=== PATIENT | female | born 1990 | race Caucasian/White ===

== ENCOUNTER 2025-02-15 06:02 | Emergency (ER) | payer OTHER, SELFPAY ==
[2025-02-15 06:08] VITALS: BP 98/70
[2025-02-15 06:35] LABS: Hematocrit 40.7 % (37.0-47.0); Hemoglobin 13.5 g/dL (12.0-16.0); Mean Corp Hgb Conc. 33.2 g/dL (33.0-37.0); Mean Corpuscular Volume 87.9 fL (81.0-99.0); Nucleated Red Blood Cells % 0 %; Platelet Count 254 10^3/uL (130-400); Red Cell Dist. Width 11.9 % (11.5-14.5)
[2025-02-15 06:48] LABS: ALT (SGPT) 12 U/L (0-35); AST (SGOT) 18 U/L (14-36); Albumin 4.8 g/dl (3.5-5.0); Alkaline Phosphatase 61 U/L (38-126); Blood Urea Nitrogen 16 mg/dl (7-17); Calcium 9.2 mg/dl (8.4-10.2); Carbon Dioxide 26 mmol/L (22-30); Chloride 108 mmol/L (98-107); Glucose 98 mg/dl (70-99); Potassium 4.6 mmol/L (3.5-5.1); Sodium 141 mmol/L (135-145); Total Protein 7.9 g/dl (6.3-8.2); eGFR > 60.00
[2025-02-15 06:59] LABS: Troponin I < 0.012 ng/ml
[2025-02-15 07:06] LABS: HCG, Serum Qualitative Screen Negative
[2025-02-15 09:17] VITALS: BMI 19.9
[2025-02-15 09:20] VITALS: BP 112/79
--- NOTE | 2025-02-15 09:26 | ED.GENMED ---
History of Present Illness
General
Chief Complaint: Chest Problem
Time Seen by Provider: 02/15/25 09:14
History of Present Illness
History of Present Illness:
34-year-old female without significant past medical history presenting to the emergency department for intermittent left-sided chest pain. Patient reports for the past few months she has had left-sided chest pain, more prominent in the past week.
Denies known inciting component to the pain. Does note some mild shortness of breath when pain comes on, only lasts a few seconds. Denies radiation. Denies personal cardiac history, does report some family history. Denies any history of blood
clots, exogenous estrogen, recent travel or surgery. Denies abdominal pain or GI symptoms. She saw her primary care doctor who recommended that she come to the hospital. Denies additional acute medical complaints
Phy Exam
Physical Exam
Physical Exam:
General: Well-appearing, no clinical signs of dehydration, nontoxic and in no acute distress
HEENT: protecting airway
Neck: appears supple
CV: Normal heart rate, regular rhythm
Resp: No accessory muscle use, no increased work of breathing, lungs clear to auscultation bilaterally
Abd: Soft and non-distended, no tenderness to palpation
Extremities: No deformities, no swelling
Neuro: alert, no focal neurologic deficit
: deferred
Rectal: deferred
Psych: Normal affect
Skin: Intact
Scores
Heart Score for Chest Pain Patients
STEMI patient?: No
History: Slightly or Non-Suspicious
ECG: Normal
Age: </= 45 years
Risk Factors: 1 or 2 Risk Factors
Troponin: </= Normal Limit
Heart Score for Chest Pain Patients: 1
Heart Score Risk: 2.5% MACE over next 6 weeks
Course
Orders/Labs/Results
Orders:
Orders
02/15/25 06:12
Electrocardiogram (*1) Urgent
Reason for Study: Chest Pain
02/15/25 06:13
EKG- Treatment ONCE
02/15/25 06:22
Complete Blood Count/With Diff Urgent
Comprehensive Metabolic Panel Urgent
HCG, Serum Qualitative Screen Urgent
Comment: ADD ON
Troponin I Urgent
02/15/25 06:29
Add On- LAB Urgent
Tests Added?: HCG QUAL
02/15/25 09:25
CR Chest - 2 Views Urgent
Comment:
Reason For Exam: chest pain
02/15/25 09:29
D-Dimer Urgent
Abnormal Lab Results
02/15/25
06:22
WBC 4.6 L 10^3/uL
(4.8-10.8)
Chloride 108 H mmol/L
(98-107)
02/15/25 06:22
02/15/25 06:22
Vital Signs
Initial and Last Documented VS:
Initial Vital Signs
Temp Pulse Resp BP Pulse Ox
98.1 F 64 18 98/70 98
02/15/25 06:08 02/15/25 06:08 02/15/25 06:08 02/15/25 06:08 02/15/25 06:08
Last Documented Vital Signs
Temp Pulse Resp BP Pulse Ox
98.1 F 54 13 112/79 100
02/15/25 06:08 02/15/25 09:45 02/15/25 09:45 02/15/25 09:20 02/15/25 09:45
MDM/Problems Addressed
MDM/Problems Addressed:
34-year-old female presenting for intermittent chest pain. Vital signs are normal.
On exam, patient resting comfortably, no acute distress or discomfort. EKG reviewed upon arrival, nonischemic, no arrhythmia. Patient with minimal cardiac risk factors with lower suspicion for ACS. No present PE risk factors. Patient afebrile,
nontoxic, no infectious symptoms without concern for pneumonia. Lungs clear to auscultation, lower suspicion for pneumothorax. Patient had screening laboratory analysis prior to my assessed with undetectable troponin. Patient low risk by heart
score, again without concern for ACS. Will screen with dimer and chest x-ray imaging and reassess.
11:15 - Chest x-ray without any signs of acute cardiopulmonary disease. Dimer is negative. At this time low suspicion for emergent life-threatening process. Feel stable for discharge, however given duration of symptoms, I do feel patient warrants
outpatient cardiac follow-up for potential additional testing such as echo or stress test. Return precautions discussed and patient verbalized understanding
*Pulse Oximetry
SaO2: 98
Oxygen Mode of Delivery: Room air
Patient hypoxic: no
*EKG
Interpreted by ED Provider?: Yes
EKG Intrepretation Date: 02/15/25
EKG Intrepretation Time: 09:28
Interpretation: normal
Heart Rate: 59
Rate: bradycardiac
Rhythm: sinus
[place]: normal axis
Interval: normal interval
QRS Pattern: normal QRS
Ischemia: no ischemia
*Critical Care Note
Total Time (30-74mins, 75-104mins- exclusive of procedures): Not Applicable
ED Attending Note
-
Portions of this chart may have been created with voice recognition software.� Occasional wrong word or��sound alike� substitutions may have occurred due to the inherent limitations of voice recognition software.
Discharge Plan
Departure
Patient Disposition: Home (Routine Discharge)
Date of Disposition: 02/15/25
Time of Disposition: 11:19
Patient with high blood pressure during this ER visit?: No
Condition: Good
Discharge Problem:
Chest wall pain
Instructions: Chest pain (DC)
Prescriptions:
No Action
vit-iron fum-folic ac 1 EACH tablet
1 ea PO TID
sennosides-docusate sodium [Stool Softener-Stimulant Laxat] 8.6-50 mg Tablet
1 tab PO DAILYPRN PRN (Reason: constipation) Qty: 0 0RF
ibuprofen 600 mg Tablet
400 mg PO Q4HPRN PRN (Reason: moderate pain/cramps) Qty: 0 0RF
Referrals:
Dell Delgado MD [Active, Cardiology]
Activity Restrictions/Additional Instructions:
You were seen in the emergency department for chest pain
You were found to have reassuring EKG, laboratory analysis, chest x-ray imaging. We recommend that you follow-up with a minister helper.
Please follow-up closely with your primary care physician.
Return to the emergency department for any worsening of your symptoms, or any development of chest pain, difficulty breathing, abdominal pain with persistent vomiting and inability to tolerate food or liquid by mouth (concern for dehydration),
weakness, headache or confusion, fever greater than 100.4, or any additional symptoms that are concerning to you.
Thank you for choosing [facility] [place].
Interventions
Interventions:
*Risk Screen - Suicide Last Done: 02/15/25 06:08
*Neglect/Abuse Screening Last Done: 02/15/25 06:08
*ED- Fall Risk Assessment Last Done: 02/15/25 09:17
*ED COVID-19 Vaccine History Last Done: 02/15/25 09:17
ED- Cardiac Assessment Last Done: 02/15/25 09:17
ED- Pulmonary Assessment Last Done: 02/15/25 09:17
Discharge Date and Time
Print Language: SERBIAN
[2025-02-15 10:10] LABS: D-Dimer < 0.27 ug/mlFEU (0.00-0.50)
== END 2025-02-15 11:36 | disposition home or self-care (01) ==
LOC: EMR 06:02
PROVIDERS: Emergency Medicine; EMERGENCY PHYSICIAN Student in an Organized Health Care Education/Training Program; FAMILY PHYSICIAN Physician Assistant
DX: R07.89 Other chest pain (principal)
CPT/HCPCS: 99284; 71046; 80053; 84484; 84703; 85025; 85379; 93005